=== PATIENT | male | born 1970 | race Caucasian/White ===

== ENCOUNTER 2016-10-20 09:54 | Outpatient (CLI) | payer BC, OTHER | END 2016-10-20 17:15 | disposition home or self-care (01) | LOC: SRD 09:54 | PROVIDERS: ATTEND Internal Medicine | DX: S69.92XA Unspecified injury of left wrist, hand and finger(s), initial encounter (principal); S29.9XXA Unspecified injury of thorax, initial encounter; X58.XXXA Exposure to other specified factors, initial encounter; Y93.89 Activity, other specified; Y92.89 Other specified places as the place of occurrence of the external cause; Y99.8 Other external cause status | CPT/HCPCS: 71020-TC ==

== ENCOUNTER 2019-05-27 13:44 | Outpatient (CLI) | payer OTHER | END 2019-05-27 20:57 | disposition home or self-care (01) | LOC: SRD 13:44 | PROVIDERS: ATTEND Internal Medicine | DX: M25.551 Pain in right hip (principal); M25.552 Pain in left hip | CPT/HCPCS: 73521 ==

== ENCOUNTER 2020-10-30 16:49 | Outpatient (CLI) | payer OTHER | END 2020-10-30 20:58 | disposition home or self-care (01) | LOC: SDS 16:49 → SRD 20:58 | PROVIDERS: ATTEND Internal Medicine | DX: M47.816 Spondylosis without myelopathy or radiculopathy, lumbar region (principal); M43.16 Spondylolisthesis, lumbar region; M41.86 Other forms of scoliosis, lumbar region; M47.817 Spondylosis without myelopathy or radiculopathy, lumbosacral region; M77.8 Other enthesopathies, not elsewhere classified; M89.38 Hypertrophy of bone, other site; M54.5 Low back pain | CPT/HCPCS: 72110 ==